=== PATIENT | female | born 1990 | race Caucasian/White ===

== ENCOUNTER 2017-01-08 03:42 | Emergency (ER) | payer OTHER ==
[2017-01-08] MEDS ORDERED: CYCLOBENZAPRINE HCL 10 MG TABLET ONE (04:11)
== END 2017-01-08 04:19 | disposition home or self-care (01) ==
LOC: ED 03:42
DX: S13.4XXA Sprain of ligaments of cervical spine, initial encounter (principal); M54.5 Low back pain; M99.01 Segmental and somatic dysfunction of cervical region; V43.52XA Car driver injured in collision with other type car in traffic accident, initial encounter; Y92.410 Unspecified street and highway as the place of occurrence of the external cause